=== PATIENT | male | born 1990 | race Caucasian/White ===

== ENCOUNTER 2020-11-14 17:08 | Emergency (ER) | payer SELFPAY ==
[2020-11-14 17:14] VITALS: BP 147/100; PULSE 102; RESP 18; TEMP 36.8; O2SAT 100
[2020-11-14 17:17] VITALS: PULSE 103
--- NOTE | 2020-11-14 17:17 | ECG_ITS ---
Measurements Intervals [place] Rate: 94 P: 69 DC: 144 QRS: 56 QRSD: 88 T: 53 QT: 338 QTc: 423 Interpretive Statements SINUS RHYTHM POSSIBLE LEFT ATRIAL ENLARGEMENT MINIMAL Q WAVES- LATERAL LEADS BORDERLINE ECG Electronically Signed On 11-14-2020 18:39:15 [employer]TACT [employer] INSPECTOR by Srinath Dubois D.O.
[2020-11-14 18:08] LABS: Basophils Absolute Auto 0.1 K/mm3 (0.0-0.1); Basophils Percent Auto 1.1 % (0.2-1.2); Eosinophils Absolute Auto 0.1 K/mm3 (0-0.3); Eosinophils Percent Auto 1.4 % (0-4.4); Hematocrit 48.8 % (42.0-52.0); Immature Granulocyte Absolute 0.04 K/mm3 (0.00-0.031); Immature Granulocyte Percent A 0.4 % (0-0.5); Lymphocytes Absolute Auto 3.04 K/mm3 (0.9-3.2); Lymphocytes Percent Auto 31.2 % (18.3-44.2); Mean Corpuscular HGB Conc 34.8 g/dl (32-36); Mean Corpuscular Hemoglobin 31.2 pg (26-34); Mean Corpuscular Volume 89.5 fl (80-100); Mean Platelet Volume 9.6 fl (7.4-10.4); Monocytes Absolute Auto 0.8 K/mm3 (0.1-0.6); Monocytes Percent Auto 8.5 % (2.6-8.5); Neutrophils Absolute Auto 5.6 K/mm3 (1.3-6.7); Neutrophils Percent Auto 57.4 % (45.5-73.1); Platelet Count Result 323 k/mm3 (150-375); Red Blood Count 5.45 M/mm3 (4.6-6.20); Red Cell Distribution Width 12.1 % (11.5-14.5); White Blood Count 9.8 K/mm3 (4.5-10.0)
[2020-11-14 18:19] LABS: Anion Gap 12 mmol/L (8-16); Blood Urea Nitrogen 7 mg/dL (9-20); Calcium 9.3 mg/dL (8.4-10.2); Carbon Dioxide 25 mmol/L (22-30); Chloride 98 mmol/L (98-107); Estimated CRCL calculation 98 ml/min; Estimated Glomerular Filt Rate > 60; Glucose 150 mg/dL (75-110); Potassium 3.7 mmol/L (3.4-5.0); Sodium 135 mmol/L (137-145)
--- NOTE | 2020-11-14 18:32 | ED.GENADULT ---
HPI - General Adult General Chief complaint: Unspecified Stated complaint: palpations Time Seen by Provider: 11/14/20 17:32 Source: patient Mode of arrival: ambulatory Limitations: no limitations History of Present Illness HPI narrative: Patient a 30-year-old male who presents to emergency department for evaluation of not feeling well just prior to arrival states he was driving when he began to feel as though you are having palpitations and pulled over and for short period of time felt like he was having an out of body experience patient on arrival resting comfortably feeling much better noting that he has been under increasing stress of late denies any pertinent past medical history denies drug abuse Related Data Home Medications Medication Instructions Recorded Confirmed No Home Medications 11/14/20 11/14/20 Allergies Allergy/AdvReac Type Severity Reaction Status Date / Time No Known Allergies Allergy Verified 11/14/20 17:13 Review of Systems Review of Systems: All systems reviewed & are unremarkable except as noted in HPI and below PMFSH Social History Social History (Updated 11/14/20 @ 18:36 by Arpan Sadlre PA-C) Smoking status: Never smoker Gender identity (if verbalized by the patient): Male Exam Narrative: Exam Narrative: GENERAL: Well-appearing, well-nourished, and in no acute distress. HEAD: Normocephalic, atraumatic. EYES: PERRLA and EOMI. ENT: Nares clear, no rhinorrhea or epistaxis. Mucous membranes moist. CHEST: Clear to auscultation. No respiratory distress. No wheezes rales or rhonchi HEART: Regular rate and rhythm. No murmur heard. Normal peripheral pulses. ABDOMEN: Soft, nontender, nondistended EXTREMITIES: Normal range of motion. No edema. SKIN: Warm, dry, no rash. NEURO: No focal deficits. Alert and oriented x3. PSYCH: Normal mood and affect. Course Course Emergency Course: Patient in the room no distress aware of case findings treatment plan diagnosis agreeing to follow-up as directed or to return if symptoms worsen or concerns patient felt appropriate for outpatient reevaluation Vital Signs Vital signs: Vital Signs Temperature 98.2 F 11/14/20 17:14 Pulse Rate 102 H 11/14/20 17:14 Respiratory Rate 18 11/14/20 17:14 Blood Pressure 147/100 H 11/14/20 17:14 Pulse Oximetry 100 11/14/20 17:14 Temperature 98.2 F 11/14/20 17:14 Pulse Rate 103 H 11/14/20 17:17 Respiratory Rate 18 11/14/20 17:14 Blood Pressure 147/100 H 11/14/20 17:14 Pulse Oximetry 100 11/14/20 17:14 Medical Decision Making MDM Narrative Medical decision making narrative: Patient in the room hemodynamically stable no distress felt appropriate for outpatient reevaluation basic blood work no high risk changes agreeing to follow with primary care Vital Signs Vital Signs: Vital Signs Temperature 98.2 F 11/14/20 17:14 Pulse Rate 102 H 11/14/20 17:14 Respiratory Rate 18 11/14/20 17:14 Blood Pressure 147/100 H 11/14/20 17:14 Pulse Oximetry 100 11/14/20 17:14 Temperature 98.2 F 11/14/20 17:14 Pulse Rate 103 H 11/14/20 17:17 Respiratory Rate 18 11/14/20 17:14 Blood Pressure 147/100 H 11/14/20 17:14 Pulse Oximetry 100 11/14/20 17:14 Lab Data Result diagrams: 11/14/20 18:03 11/14/20 18:03 Labs: Lab Results 11/14/20 11/14/20 Range/Units 18:03 18:03 WBC 9.8 (4.5-10.0) K/mm3 RBC 5.45 (4.6-6.20) M/mm3 Hgb 17.0 (14.0-18.0) g/dL Hct 48.8 (42.0-52.0) % MCV 89.5 (80-100) fl MCH 31.2 (26-34) pg MCHC 34.8 (32-36) g/dl RDW 12.1 (11.5-14.5) % Plt Count 323 (150-375) k/mm3 MPV 9.6 (7.4-10.4) fl Immature Gran % (Auto) 0.4 (0-0.5) % Neut % (Auto) 57.4 (45.5-73.1) % Lymph % (Auto) 31.2 (18.3-44.2) % Grundy % (Auto) 8.5 (2.6-8.5) % Eos % (Auto) 1.4 (0-4.4) % Baso % (Auto) 1.1 (0.2-1.2) % Lymph # (Auto) 3.04 (0.9-3.2) K/mm3 [place]undy # (Auto) 0.8 H (0.1-0.6)
[2020-11-14 18:40] VITALS: BP 129/89; PULSE 100; RESP 18; O2SAT 98
[2020-11-14 18:55] VITALS: BP 136/84; PULSE 84; RESP 16; O2SAT 99
== END 2020-11-14 19:00 | disposition home or self-care (01) ==
PROVIDERS: Emergency Medicine Emergency Medical Services; Emergency Provider Emergency Medicine
DX: F41.9 Anxiety disorder, unspecified (principal); R94.31 Abnormal electrocardiogram [ECG] [EKG]
CPT/HCPCS: 36415; 80048; 85025; 93005; 99283